=== PATIENT | female | born 1985 | race Hispanic/Latino ===

== ENCOUNTER 2018-06-22 10:54 | Emergency (ER) | payer OTHER ==
[2018-06-22 11:06] VITALS: RESP 18; TEMP 98.6; O2SAT 100
--- NOTE | 2018-06-22 11:58 | ED PDOC ---
HPI: General Adult Time Seen by Provider: 06/22/18 11:56 Chief Complaint (Nursing): Female Genitourinary Chief Complaint (Provider): vaginal bleeding/abdominal pain History Per: Patient (33 y/o female LMP 05/09/2018 here with vaginal spotting x 3 days worsening last night and associated with crampy lower abdominal pain. Denies any dsyuria/fevers/chills.) Past Medical History Reviewed: Historical Data, Nursing Documentation, Vital Signs Vital Signs: Last Vital Signs Temp 98.6 F 06/22/18 11:06 Pulse 85 06/22/18 11:06 Resp 18 06/22/18 11:06 BP 144/75 06/22/18 11:06 Pulse Ox 100 06/22/18 11:06 - Family History Family History: States: No Known Family Hx - Allergies Allergies/Adverse Reactions: Allergies Allergy/AdvReac Type Severity Reaction Status Date / Time No Known Allergies Allergy Verified 06/22/18 11:10 Review of Systems ROS Statement: Except As Marked, All Systems Reviewed And Found Negative Physical Exam - Reviewed Nursing Documentation Reviewed: Yes Vital Signs Reviewed: Yes - Physical Exam Appears: Positive for: Well, Non-toxic, No Acute Distress Head Exam: Positive for: ATRAUMATIC, NORMAL INSPECTION, NORMOCEPHALIC Skin: Positive for: Normal Color, Warm, DRY Eye Exam: Positive for: EOMI, Normal appearance, PERRL ENT: Positive for: Normal ENT Inspection Neck: Positive for: Normal, Painless ROM Cardiovascular/Chest: Positive for: Regular Rate, Rhythm Respiratory: Positive for: CNT, Normal Breath Sounds Gastrointestinal/Abdominal: Positive for: Normal Exam, Soft Pelvic Exam: Negative for: Tender Adnexa (NO CMT; NONTENDER ADNEXA. SMALL AMOUNT OF DARK BLOOD NOTED IN VAGINAL CANAL) Back: Positive for: Normal Inspection Extremity: Positive for: Normal ROM Neurologic/Psych: Positive for: Alert, Oriented - Laboratory Results Result Diagrams: 06/22/18 11:54 06/22/18 11:54 - ECG O2 Sat by Pulse Oximetry: 100 - Progress ED Course And Treament: US TRANSVAGINAL: IMPRESSION: No evidence of intrauterine gestation. Nonspecific small echogenic structure measuring 1.7 cm medial to the right ovary without significant peripheral doppler flow. Ectopic not excluded. Close clinical follow-up with serial pelvic ultrasound and serum beta HCG levels is recommended. Disposition - Clinical Impression Clinical Impression: Threatened miscarriage in early - Patient ED Disposition Is Patient to be Admitted: No - Disposition Disposition: Routine/Home Disposition Time: 14:23 Condition: FAIR Additional Instructions: FOLLOW UP WITH LEAD PRINCIPAL TECHNICAL ARCHITECT TOMORROW; IF YOU ARE UNABLE TO F/U WITH LEAD PRINCIPAL TECHNICAL ARCHITECT PLEASE COME TO ED ON SATURDAY FOR REPEAT BETA HCG. Instructions: Threatened Miscarriage (DC), Bleeding With (DC)
[2018-06-22 12:02] LABS: BASO % 0.3 % (0.0-2.0); EOS % 0.3 % (0.0-4.0); HEMOGLOBIN 12.8 g/dL (12.0-16.0); LYMPH % 15.5 % (20.0-40.0); MEAN CELL VOLUME 92.8 fl (81.0-99.0); MEAN CORPUSCULAR HEMOGLOBIN 30.9 pg (27.0-31.0); MEAN CORPUSCULAR HGB CONC 33.3 g/dL (33.0-37.0); MEAN PLATELET VOLUME 8.3 fl (7.2-11.7); MONO # 0.4 K/uL (0.0-0.8); MONO % 5.4 % (0.0-10.0); NEUT # 5.2 K/uL (1.8-7.0); NEUT % 78.5 % (50.0-75.0); NRBC % 0.1 % (0.0-0.0); RBC 4.15 Mil/uL (3.80-5.20); RED CELL DISTRIBUTION WIDTH 13.9 % (11.5-14.5); WHITE BLOOD COUNT 6.6 K/uL (4.8-10.8)
[2018-06-22 12:10] LABS: ALB/GLOB RATIO 1.3 (1.0-2.1); ALT/SGPT 21 U/L (9-52); AST/SGOT 20 U/L (14-36); BLOOD UREA NITROGEN 14 mg/dl (7-17); GFR NON-AFRICAN AMERICAN > 60
--- NOTE | 2018-06-22 13:53 | US ---
Date of service: 06/22/2018 PROCEDURE: OB Pelvic Ultrasound HISTORY: R/O ECTOPIC LMP: 05/09/2018 COMPARISON: None available. FINDINGS: UTERUS: Uterus measures 6.1 x 4.3 x 3.1 cm. Anteverted. Normal in size and appearance. No intrauterine gestational sac. Endometrium measures 8 mm. CERVIX: Long and closed. No cervical abnormality seen. RIGHT OVARY: Measures 3.3 x 2.5 x 1.9 cm. Corpus luteum. Small echogenic structure adjacent to the right ovary without significant peripheral Doppler flow. Normal flow. LEFT OVARY: Measures 3.7 x 1.2 x 1.5 cm. No solid mass. Normal flow. FREE FLUID: None. OTHER FINDINGS: None. IMPRESSION: No evidence of intrauterine gestation. Nonspecific small echogenic structure measuring 1.7 cm medial to the right ovary without significant peripheral doppler flow. Ectopic not excluded. Close clinical follow-up with serial pelvic ultrasound and serum beta HCG levels is recommended.
[2018-06-22 14:27] VITALS: BP 114/69; PULSE 69
== END 2018-06-22 14:35 | disposition home or self-care (01) ==
LOC: H.ER 10:54
DX: O20.0 Threatened abortion (principal); Z3A.01 Less than 8 weeks gestation of pregnancy

== ENCOUNTER 2018-06-26 17:53 | Emergency (ER) | payer OTHER ==
[2018-06-26 18:36] VITALS: BP 116/81; PULSE 73; RESP 18; TEMP 98.4; O2SAT 100
--- NOTE | 2018-06-26 18:51 | ED PDOC ---
HPI: Female Pain Time Seen by Provider: 06/26/18 18:39 Chief Complaint (Nursing): Female Genitourinary Chief Complaint (Provider): Repeat Lab History Per: Patient History/Exam Limitations: no limitations Onset/Duration Of Symptoms: Days (x4) Current Symptoms Are (Timing): Still Present Additional Complaint(s): 33 year old female presents to the ED for a repeat Beta-HCG quant. Patient reports that on 06/22 she was seen in this ED for vaginal bleeding, dull abdominal pain, and possible miscarriage. She had US and Beta-HCG quant done, which was 341.23. Patient reports that two days after, she went [facility] who did a repeat, which was around 310. She is here today for another repeat and to rule out any complications such as ectopic . Currently, she states she has been spotting since 06/22, but not soaking through any pads, and reports dull abdominal pain, but not severe, and dull right shoulder blade pain. Denies fever, nausea, and vomiting. Of note, patient states that she has an appointment with her gyno tomorrow, but she told her to come in to the ED today. PMD: [facility] Punching Machine Operator: Alecia Jaime Past Medical History Reviewed: Historical Data, Nursing Documentation, Vital Signs Vital Signs: Last Vital Signs Temp 98.4 F 06/26/18 18:35 Pulse 73 06/26/18 18:35 Resp 18 06/26/18 18:35 BP 116/81 06/26/18 18:35 Pulse Ox 100 06/26/18 18:35 - Medical History PMH: No Chronic Diseases - Surgical History Surgical History: No Surg Hx - Family History Family History: States: Unknown Family Hx - Social History Current smoker - smoking cessation education provided: No Alcohol: None Drugs: Denies - Allergies Allergies/Adverse Reactions: Allergies Allergy/AdvReac Type Severity Reaction Status Date / Time No Known Allergies Allergy Verified 06/26/18 18:32 Review of Systems ROS Statement: Except As Marked, All Systems Reviewed And Found Negative Constitutional: Negative for: Fever Gastrointestinal: Positive for: Abdominal Pain (dull, but no severe pain). Negative for: Nausea, Vomiting Genitourinary Female: Positive for: Vaginal Bleeding Musculoskeletal: Positive for: Shoulder Pain (right shoulder blade, dull) Physical Exam - Reviewed Nursing Documentation Reviewed: Yes Vital Signs Reviewed: Yes - Physical Exam Appears: Positive for: No Acute Distress Head Exam: Positive for: ATRAUMATIC, NORMOCEPHALIC Skin: Positive for: Normal Color, Warm, Dry Eye Exam: Positive for: Normal appearance Cardiovascular/Chest: Positive for: Regular Rate, Rhythm Respiratory: Positive for: Normal Breath Sounds. Negative for: Respiratory Distress Gastrointestinal/Abdominal: Positive for: Soft, Tenderness (mild RLQ tenderness to palpation). Negative for: Other (Rovsing's sign; Vince's sign; McBurney's point tenderness) Back: Positive for: Normal Inspection, Other (straight leg raise negative bilaterally) Extremity: Positive for: Normal ROM (all extremities) Neurological/Psych: Positive for: Awake, Alert, Oriented (x3) - ECG O2 Sat by Pulse Oximetry: 100 (RA) Pulse Ox Interpretation: Normal Medical Decision Making Medical Decision Making: Time: 1839 Initial Impression: r/o ectopic Initial Plan: --Beta-HCG, quant --US transvaginal From 06/22 visit: US TRANSVAGINAL: IMPRESSION: No evidence of intrauterine gestation. Nonspecific small echogenic structure measuring 1.7 cm medial to the right ovary without significant peripheral doppler flow. Ectopic not excluded. Close clinical follow-up with serial pelvic ultrasound and serum beta HCG levels is recommended. Beta-HCG quant: 341.23 mIU/mL Beta-HCG quant, today, 06/26: 196.29 2128 US FINDINGS: ENDOMETRIUM: Normal thickness measuring 8.0 mm. A 4.2 x 3.4 x 4.3 mm anechoic collection is seen in the upper endometrial canal possibly compatible with a gestational sac. No pole or yolk sac is noted. An anembryonic gestation can therefore not be excluded. UTERUS/CERVIX: The uterus appears anteverted in position and normal in size measuring approximately 6.2 x 3.0 x 4.1 cm in longitudinal, AP and transverse dimensions respectively. No uterine fibroid or other mass evident. RIGHT OVARY: Normal Doppler flow. A 1.6 x 0.9 x 1.5 cm solid heterogeneous mass is seen thought likely compatible with a hemorrhagic ovarian cyst. Additionally, a 1.5 x 1.4 x 1.5 cm solid heterogeneous circumscribed area is seen in the right adnexal region. This demonstrated peripheral hypervascularity; and therefore, is thought compatible with ectopic gestation. LEFT OVARY: Normal Doppler flow. No abnormal mass. A few tiny follicles are scattered in the periphery of the ovary FREE FLUID: There is a moderate volume of free fluid now noted in the posterior cul-de-sac. IMPRESSION: 1. A 1.5 cm heterogeneous collection with a peripheral ring of hypervascularity demonstrated in the right adnexal region. An ectopic gestation must be considered; possibly rupturing. 2. A moderate volume of free fluid is now seen within the posterior cul-de-sac. 3. 4 x 3 mm anechoic collection in the upper endometrial canal, suggestive of a gestational sac. No pole or yolk sac detected. The possibility of an anembryonic gestation cannot be excluded. 4. Possible 1.5 x 1.4 cm hemorrhagic cyst in the right ovary. 2129 Secondary to US results, OB paged. 2144 Spoke with OB on-call, Dr. Canseco: discussed the case with him and he indicated that the US images indicate an interuterine with no free fluid. His recommendation is to discharge with follow up with her AWS SOFTWARE DEVELOPMENT ENGINEER on Saturday or Saturday with stronger recommendation to retuen to the ED in the event of increased bleeding, pain or fever. The patient acknowledged these recommendations and after re-evaluatoin, is stable for discharge Scribe Attestation: Documented by Rin Wood, acting as a scribe for Fredrick Belle PA-C. Provider Scribe Attestation: All medical record entries made by the Scribe were at my direction and person ally dictated by me. I have reviewed the chart and agree that the record accurately reflects my personal performance of the history, physical exam, medical decision making, and the department course for this patient. I have also personally directed, reviewed, and agree with the discharge instructions and disposition. Disposition - Clinical Impression Clinical Impression: Threatened in early - Patient ED Disposition Is Patient to be Admitted: No Discussed With Dr.: Geo Canseco (see MDM for recommendations) Comment: Follow up with OB on Saturday, return to ED in event of increased pain, bleeding or fever Doctor Will See Patient In The: Office Counseled Patient/Family Regarding: Studies Performed, Diagnosis, Need For Followup - Disposition Disposition: Routine/Home Disposition Time: 22:02 Condition: STABLE Additional Instructions: Follow up with OB (Dr Alecia Laguna) on Saturday, return to ED in event of increased pain, bleeding or fever Instructions: Threatened Miscarriage, Threatened Miscarriage (DC), Bleeding With (DC) Forms: [employer] (Serbian)
--- NOTE | 2018-06-27 10:27 | US ---
Date of service: 06/26/2018 Indication: right side pain; decr beta Comparison: Ob transvaginal ultrasound performed 06/22/18 Technique: Transvaginal pelvic ultrasound Findings: Uterus measures approximately 6.2 x 4.1 x 3.0 cm. Cervix length measures approximately 3.0 cm. Small rounded cystic structure noted at the endometrium, possibly gestational sac measuring 0.4 x 0.3 x 0.4 cm. No evidence of pole or yolk sac. The right ovary measures 2.9 x 2.1 x 1.7 cm. Complex 1.6 x 1.5 x 0.9 cm heterogeneous mass, possibly hemorrhagic ovarian cyst. Medial to the right ovary evidence of 1.5 x 1.5 x 1.4 cm complex structure with peripheral hypervascularity; ectopic gestation is not excluded. The left ovary measures 3.3 x 1.5 x 1.4 cm. Blood flow was demonstrated to both ovaries. Small complex pelvic free fluid. Impression: Medial to the right ovary evidence of 1.5 x 1.5 x 1.4 cm complex structure with peripheral hypervascularity; appearance worrisome for ectopic gestation. Correlate clinically including crusher plant operator consultation and quantitative beta HCG. Small cystic structure within the endometrium, possibly pseudo gestational sac or gestational sac. No evidence of pole or yolk sac. Complex heterogeneous mass within the right ovary, possibly hemorrhagic ovarian cyst. Small complex pelvic free fluid. Preliminary impression was provided by [employer]
== END 2018-06-26 22:17 | disposition home or self-care (01) ==
LOC: H.ER 17:53
DX: O20.0 Threatened abortion (principal)